=== PATIENT | female | born 1945 ===

== ENCOUNTER 2023-09-25 03:06 | Outpatient (CLI) | payer MEDICARE, BC, SELFPAY ==
[2023-09-25 11:38] LABS: HCT 38.8 % (36.0-46.0); HGB 12.6 g/dL (11.2-15.7); MCH 31.4 pg (27.0-33.0); MCHC 32.5 % (32.0-36.0); MCV 97 fL (80-95); RBC 4.01 10^6/uL (3.93-5.22); RDW 13.2 % (11.7-14.6); RDW-SD 46.9 fL; WBC 2.83 10^3/uL (4.4-10.8)
[2023-09-25 11:56] LABS: Platelet Count 26 10^3/uL (130-400)
[2023-09-25 12:02] LABS: Absolute Eosinophil Count 0.06 10^3/uL (0.0-0.7); Absolute Lymphocyte Count 1.05 10^3/uL (1.2-3.4); Absolute Monocyte Count 0.45 10^3/uL (0.1-0.8); Absolute Neutrophil Count 1.25 10^3/uL (1.2-6.7); Atypical Lymphocytes % 6 %; Bands % 2 %; Diff Comment Manual Differential; Metamyelocytes % 0; Myelocytes % 1; Other Cells % 0; Promyelocytes % 0; RBC Morphology Normal
[2023-09-25 12:14] LABS: ALT 26 U/L (14-59); AST 23 U/L (15-37); Albumin 4.2 g/dL (3.4-5.0); Alkaline Phosphatase 108 U/L (46-116); Anion Gap 10.8 mmol/L (3-11); BUN 14 mg/dL (7-18); Bilirubin, Total 0.68 mg/dL (0.2-1.0); CO2 27.2 mmol/L (21.0-32.0); CREATININE 0.8 mg/dL (0.55-1.02); Calcium 9.9 mg/dL (8.5-10.1); Chloride 99 mmol/L (98-107); Glucose 89 mg/dL (74-106); Potassium 4.1 mmol/L (3.5-5.1); Sodium 137 mmol/L (136-145); Total Protein 8.5 g/dL (6.4-8.2)
== END 2023-09-25 03:07 | disposition home or self-care (01) ==
LOC: LBO 03:06
PROVIDERS: Visit Provider Internal Medicine Hematology & Oncology
DX: D64.9 Anemia, unspecified (principal)
CPT/HCPCS: 36415; 80053; 85025

== ENCOUNTER 2023-11-13 02:11 | Outpatient (CLI) | payer MEDICARE, BC, SELFPAY ==
[2023-11-13 12:43] LABS: HCT 33.7 % (36.0-46.0); HGB 11.2 g/dL (11.2-15.7); MCH 31.7 pg (27.0-33.0); MCHC 33.2 % (32.0-36.0); MCV 96 fL (80-95); RBC 3.53 10^6/uL (3.93-5.22); RDW 14.3 % (11.7-14.6); RDW-SD 49.7 fL
[2023-11-13 12:57] LABS: ALT 21 U/L (14-59); AST 16 U/L (15-37); Albumin 3.8 g/dL (3.4-5.0); Alkaline Phosphatase 103 U/L (46-116); Anion Gap 8.6 mmol/L (3-11); BUN 13 mg/dL (7-18); Bilirubin, Total 0.59 mg/dL (0.2-1.0); CO2 26.4 mmol/L (21.0-32.0); CREATININE 0.8 mg/dL (0.55-1.02); Calcium 9.3 mg/dL (8.5-10.1); Chloride 98 mmol/L (98-107); Glucose 93 mg/dL (74-106); Potassium 3.8 mmol/L (3.5-5.1); Sodium 133 mmol/L (136-145)
[2023-11-13 12:59] LABS: Absolute Neutrophil Count 0.74 10^3/uL (1.2-6.7)
[2023-11-13 13:00] LABS: Absolute Basophil Count 0.03 10^3/uL (0.0-0.2); Absolute Eosinophil Count 0.06 10^3/uL (0.0-0.7); Absolute Lymphocyte Count 1.86 10^3/uL (1.2-3.4); Absolute Monocyte Count 0.51 10^3/uL (0.1-0.8); Atypical Lymphocytes % 1 %; Diff Comment Manual Differential; RBC Morphology Normal
[2023-11-13 13:02] LABS: Platelet Count 29 10^3/uL (130-400)
== END 2023-11-13 02:12 | disposition home or self-care (01) ==
LOC: LBO 02:12
PROVIDERS: Visit Provider Internal Medicine Hematology & Oncology
DX: D46.9 Myelodysplastic syndrome, unspecified (principal); D47.2 Monoclonal gammopathy
CPT/HCPCS: 36415; 80053; 85025

== ENCOUNTER 2024-07-09 02:54 | Outpatient (RCR) | payer MEDICARE, BC, SELFPAY ==
[2024-06-15 13:59] LABS: HCT 35.3 % (36.0-46.0); HGB 11.2 g/dL (11.2-15.7); MCH 30.1 pg (27.0-33.0); MCHC 31.7 % (32.0-36.0); MCV 95 fL (80-95); RBC 3.72 10^6/uL (3.93-5.22); RDW 15.4 % (11.7-14.6); RDW-SD 53.5 fL; WBC 3.94 10^3/uL (4.4-10.8)
[2024-06-15 14:10] LABS: ALT 19 U/L (14-59); AST 13 U/L (15-37); Albumin 3.8 g/dL (3.4-5.0); Alkaline Phosphatase 123 U/L (46-116); Anion Gap 7.4 mmol/L (3-11); BUN 11 mg/dL (7-18); Bilirubin, Total 0.4 mg/dL (0.2-1.0); CO2 26.6 mmol/L (21.0-32.0); CREATININE 0.7 mg/dL (0.55-1.02); Calcium 9.8 mg/dL (8.5-10.1); Chloride 101 mmol/L (98-107); Estimated GFR 87.37 (mL/min/1.73m2); Glucose 100 mg/dL (74-106); Potassium 4.5 mmol/L (3.5-5.1); Sodium 135 mmol/L (136-145); Total Protein 8.7 g/dL (6.4-8.2)
[2024-06-15 14:14] LABS: Absolute Basophil Count 0.08 10^3/uL (0.0-0.2); Absolute Eosinophil Count 0.04 10^3/uL (0.0-0.7); Absolute Lymphocyte Count 1.22 10^3/uL (1.2-3.4); Absolute Monocyte Count 0.39 10^3/uL (0.1-0.8); Absolute Neutrophil Count 2.21 10^3/uL (1.2-6.7); Atypical Lymphocytes % 1 %; Diff Comment Manual Differential; Platelet Count 55 10^3/uL (130-400); RBC Morphology Normal
[2024-06-15] MEDS: Normal Saline Flush 10 ML SYR IVP (14:15)
[2024-07-09 12:29] LABS: HCT 32.5 % (36.0-46.0); HGB 10.7 g/dL (11.2-15.7); MCH 30.6 pg (27.0-33.0); MCHC 32.9 % (32.0-36.0); MCV 93 fL (80-95); Platelet Count 51 10^3/uL (130-400); RDW-SD 54.4 fL; WBC 6.63 10^3/uL (4.4-10.8)
[2024-07-09] MEDS: Normal Saline Flush 10 ML SYR IVP (12:29)
[2024-07-09 12:59] LABS: Absolute Lymphocyte Count 2.32 10^3/uL (1.2-3.4); Absolute Monocyte Count 0.93 10^3/uL (0.1-0.8); Absolute Neutrophil Count 3.38 10^3/uL (1.2-6.7); Atypical Lymphocytes % 3 %; Bands % 1 %; Diff Comment Manual Differential; RBC Morphology Normal
[2024-07-09 13:01] LABS: ALT 17 U/L (14-59); AST 15 U/L (15-37); Albumin 3.7 g/dL (3.4-5.0); Alkaline Phosphatase 126 U/L (46-116); Anion Gap 9.7 mmol/L (3-11); BUN 19 mg/dL (7-18); Bilirubin, Total 0.4 mg/dL (0.2-1.0); CO2 24.3 mmol/L (21.0-32.0); CREATININE 0.5 mg/dL (0.55-1.02); Calcium 9.8 mg/dL (8.5-10.1); Chloride 97 mmol/L (98-107); Estimated GFR 94.76 (mL/min/1.73m2); Ferritin 53 ng/mL (8-252); Glucose 100 mg/dL (74-106); Iron 35 ug/dL (50-170); Potassium 4.5 mmol/L (3.5-5.1); Sodium 131 mmol/L (136-145); Total Iron Binding Capacity 316 ug/dL (250-450); Total Protein 8.4 g/dL (6.4-8.2); Transferrin Sat 11 % (15-50)
[2024-07-10 11:48] LABS: Kappa Free Light Chain 16.97 mg/dL (0.33-1.94); Lambda Free Light Chain 1.79 mg/dL (0.57-2.63)
[2024-07-10 13:46] LABS: Albumin 49.5 % (55.8-66.1); Comment (See Note); Monoclonal Spike 19.1 % (None Seen); Monoclonal Spike g/dL 1.5 g/dL (None Seen)
[2024-07-10 16:51] LABS: Immunotyping, Serum (See Note)
== END 2024-07-11 23:59 | disposition home or self-care (01) ==
LOC: INF 02:54
PROVIDERS: Internal Medicine Medical Oncology; Nurse Practitioner Adult Health; PCP Internal Medicine Hematology & Oncology; Visit Provider Internal Medicine Hematology & Oncology
DX: D46.9 Myelodysplastic syndrome, unspecified (principal); D47.2 Monoclonal gammopathy; Z45.2 Encounter for adjustment and management of vascular access device
CPT/HCPCS: 36591; 80053; 82728; 83540; 83550; 83883; 84165; 85025; 86320

== ENCOUNTER 2024-09-16 02:00 | Outpatient (RCR) | payer MEDICARE, BC, SELFPAY ==
[2024-09-16 12:16] LABS: Abs Immature Grans 0.05 10^3/uL (0.0-0.06); HCT 29.0 % (36.0-46.0); HGB 9.0 g/dL (11.2-15.7); MCH 26.6 pg (27.0-33.0); MCHC 31.0 % (32.0-36.0); MCV 86 fL (80-95); RBC 3.38 10^6/uL (3.93-5.22); RDW 16.3 % (11.7-14.6); RDW-SD 50.8 fL; WBC 5.23 10^3/uL (4.4-10.8)
[2024-09-16 12:31] LABS: Platelet Count 81 10^3/uL (130-400)
[2024-09-16 12:32] LABS: Immature Grans % 0.0 %; RBC Morphology Normal
[2024-09-16 12:38] LABS: Iron 15 ug/dL (50-170); Total Iron Binding Capacity 405 ug/dL (250-450); Transferrin Sat 4 % (15-50)
[2024-09-16] MEDS: Normal Saline Flush 10 ML SYR IVP (12:46)
[2024-09-16 12:53] LABS: ALT 19 U/L (14-59); AST 14 U/L (15-37); Albumin 4.0 g/dL (3.4-5.0); Alkaline Phosphatase 117 U/L (46-116); Anion Gap 8.5 mmol/L (3-11); BUN 18 mg/dL (7-18); Bilirubin, Total 0.3 mg/dL (0.2-1.0); CO2 25.5 mmol/L (21.0-32.0); Calcium 9.7 mg/dL (8.5-10.1); Chloride 99 mmol/L (98-107); Estimated GFR 87.37 (mL/min/1.73m2); Ferritin 18 ng/mL (8-252); Glucose 109 mg/dL (74-106); Potassium 4.4 mmol/L (3.5-5.1); Sodium 133 mmol/L (136-145); Total Protein 8.4 g/dL (6.4-8.2)
[2024-09-16 21:49] LABS: Total Protein 8.1 g/dL (6.3-8.2)
[2024-09-17 11:06] LABS: Kappa Free Light Chain 19.94 mg/dL (0.33-1.94); Lambda Free Light Chain 1.67 mg/dL (0.57-2.63)
[2024-09-17 12:21] LABS: Albumin 51.5 % (55.8-66.1); Albumin g/dL 4.2 g/dL (3.6-5.2); Alpha 1 g/dL 0.30 g/dL (0.15-0.40); Alpha 2 g/dL 0.50 g/dL (0.50-1.00); Beta g/dL 0.80 g/dL (0.60-1.20); Gamma g/dL 2.30 g/dL (0.60-1.60); Monoclonal Spike g/dL 1.5 g/dL (None Seen)
== END 2024-10-11 23:59 | disposition home or self-care (01) ==
LOC: INF 02:00
PROVIDERS: Visit Provider Internal Medicine Hematology & Oncology
DX: D46.9 Myelodysplastic syndrome, unspecified (principal); D47.2 Monoclonal gammopathy; Z45.2 Encounter for adjustment and management of vascular access device
CPT/HCPCS: 36591; 80053; 82728; 83540; 83550; 83883; 84165; 85025

== ENCOUNTER 2024-10-21 04:07 | Outpatient (RCR) | payer MEDICARE, BC, SELFPAY ==
[2024-10-21] MEDS: Normal Saline Flush 10 ML SYR IVP (14:36)
[2024-10-21 14:59] LABS: HCT 35.8 % (36.0-46.0); HGB 11.8 g/dL (11.2-15.7); MCH 28.1 pg (27.0-33.0); MCHC 33.0 % (32.0-36.0); MCV 85 fL (80-95); RBC 4.20 10^6/uL (3.93-5.22); RDW 21.1 % (11.7-14.6); RDW-SD 64.8 fL; WBC 6.09 10^3/uL (4.4-10.8)
[2024-10-21 15:18] LABS: Iron 92 ug/dL (50-170); Total Iron Binding Capacity 377 ug/dL (250-450); Transferrin Sat 24 % (15-50)
[2024-10-21 15:20] LABS: Abs Immature Grans 0.00 10^3/uL (0.0-0.06); Anisocytosis 2+; Immature Grans % 0.0 %; Platelet Count 67 10^3/uL (130-400)
[2024-10-21 15:31] LABS: ALT 18 U/L (14-59); AST 13 U/L (15-37); Albumin 4.2 g/dL (3.4-5.0); Alkaline Phosphatase 131 U/L (46-116); Anion Gap 11.9 mmol/L (3-11); BUN 11 mg/dL (7-18); Bilirubin, Total 0.5 mg/dL (0.2-1.0); CO2 27.1 mmol/L (21.0-32.0); Calcium 10.2 mg/dL (8.5-10.1); Chloride 96 mmol/L (98-107); Ferritin 62 ng/mL (8-252); Glucose 99 mg/dL (74-106); Potassium 3.9 mmol/L (3.5-5.1); Sodium 135 mmol/L (136-145); Total Protein 8.7 g/dL (6.4-8.2)
[2024-10-21 22:18] LABS: Total Protein 8.5 g/dL (6.3-8.2)
[2024-10-22 09:30] LABS: Kappa Free Light Chain 18.87 mg/dL (0.33-1.94); Lambda Free Light Chain 1.67 mg/dL (0.57-2.63)
[2024-10-22 11:44] LABS: Albumin 52.5 % (55.8-66.1); Albumin g/dL 4.5 g/dL (3.6-5.2); Alpha 1 g/dL 0.30 g/dL (0.15-0.40); Alpha 2 g/dL 0.60 g/dL (0.50-1.00); Beta g/dL 0.70 g/dL (0.60-1.20); Gamma g/dL 2.40 g/dL (0.60-1.60); Monoclonal Spike g/dL 1.6 g/dL (None Seen)
== END 2024-11-10 23:59 | disposition home or self-care (01) ==
LOC: INF 04:07
PROVIDERS: Nurse Practitioner Adult Health; Visit Provider Internal Medicine Hematology & Oncology
DX: D46.9 Myelodysplastic syndrome, unspecified (principal); Z45.2 Encounter for adjustment and management of vascular access device
CPT/HCPCS: 36591; 80053; 82728; 83540; 83550; 83883; 84165; 85025

== ENCOUNTER 2024-11-25 01:55 | Outpatient (RCR) | payer MEDICARE, BC, SELFPAY ==
[2024-11-25] MEDS: Normal Saline Flush 10 ML SYR IVP (11:51)
[2024-11-25 11:56] LABS: Abs Immature Grans 0.04 10^3/uL (0.0-0.06); HCT 35.6 % (36.0-46.0); HGB 11.8 g/dL (11.2-15.7); MCH 29.6 pg (27.0-33.0); MCHC 33.1 % (32.0-36.0); MCV 89 fL (80-95); RBC 3.98 10^6/uL (3.93-5.22); RDW 18.5 % (11.7-14.6); RDW-SD 60.7 fL; WBC 4.39 10^3/uL (4.4-10.8)
[2024-11-25 12:18] LABS: Platelet Count 63 10^3/uL (130-400)
[2024-11-25 12:19] LABS: Immature Grans % 0.0 %; RBC Morphology Normal
[2024-11-25 12:21] LABS: ALT 18 U/L (14-59); AST 14 U/L (15-37); Albumin 4.1 g/dL (3.4-5.0); Alkaline Phosphatase 121 U/L (46-116); Anion Gap 13.0 mmol/L (3-11); BUN 24 mg/dL (7-18); Bilirubin, Total 0.4 mg/dL (0.2-1.0); CO2 27.0 mmol/L (21.0-32.0); Calcium 9.2 mg/dL (8.5-10.1); Chloride 96 mmol/L (98-107); Ferritin 125 ng/mL (8-252); Glucose 93 mg/dL (74-106); Potassium 3.8 mmol/L (3.5-5.1); Sodium 136 mmol/L (136-145); Total Protein 8.3 g/dL (6.4-8.2)
[2024-11-25 12:24] LABS: Iron 82 ug/dL (50-170); Total Iron Binding Capacity 300 ug/dL (250-450); Transferrin Sat 27 % (15-50)
== END 2024-12-11 23:59 | disposition home or self-care (01) ==
LOC: INF 01:55
PROVIDERS: Nurse Practitioner Adult Health; Visit Provider Internal Medicine Hematology & Oncology
DX: D46.9 Myelodysplastic syndrome, unspecified (principal); Z45.2 Encounter for adjustment and management of vascular access device
CPT/HCPCS: 36591; 80053; 82728; 83540; 83550; 85025